=== PATIENT | female | born 1965 | race Caucasian/White ===

== ENCOUNTER 2021-03-06 11:45 | Inpatient (IN) | payer OTHER ==
[~2021-03-06] VITALS: Ht 170.2 cm; Wt 89.0 kg
[2021-03-06 14:04] LABS: BASOPHILS % (AUTO) 0 % (0-1); EOSINOPHILS % (AUTO) 0 % (1-7); LYMPHOCYTES % (AUTO) 14 % (22-44); MEAN CORPUSCULAR HEMOGLOBIN 30.1 pg (27.0-34.8); MEAN CORPUSCULAR HGB CONC 33.9 g/dL (32.4-35.8); MEAN PLATELET VOLUME 8.2 fL (7.4-10.4); MONOCYTES % (AUTO) 7 % (2-9); NEUTROPHILS % (AUTO) 79 % (42-75); PLATELET COUNT 412 x10^3/uL (130-400); RED BLOOD COUNT 5.83 x10^6/uL (3.82-5.3)
[2021-03-06 14:09] LABS: ALBUMIN 4.7 g/dL (3.4-5.0); ANION GAP 7 mmol/L (5-15); CALCIUM 10.4 mg/dL (8.5-10.1); CHLORIDE 92 mmol/L (98-107)
[2021-03-06 14:12] LABS: ALANINE AMINOTRANSFERASE 24 U/L (12-78); ALKALINE PHOSPHATASE 68 U/L (45-117); BILIRUBIN,TOTAL 0.6 mg/dL (0.2-1.0); CREATININE 1.28 mg/dL (0.55-1.02); TOTAL PROTEIN 9.1 g/dL (6.4-8.2)
--- NOTE | 2021-03-06 16:40 | NUR ---
Pt walked back to room from lobby.
[2021-03-06] MEDS ORDERED: MORPHINE SULFATE 4 MG/ML, 1ML IVPush PRN ×2 (17:00→20:30)
[2021-03-06] MEDS ORDERED: SODIUM CHLORIDE 0.9% 1,000 ML IV ONE ×2 (17:00→19:30)
[2021-03-06] MEDS ORDERED: ONDANSETRON 2MG/ML, 2ML IVPush ONE (17:00)
[2021-03-06] MEDS ORDERED: FAMOTIDINE 20 MG/2 ML IVPush ONE (17:00)
[2021-03-06] MEDS ORDERED: SODIUM CHLORIDE FLUSH 10ML SYR IVF ONE (17:00)
[2021-03-06] MEDS ORDERED: SODIUM CHLORIDE 0.9% 1,000ML IVBOLUS ONE (17:00)
[2021-03-06 17:02] LABS: MICROSCOPIC INDICATED
--- NOTE | 2021-03-06 17:05 | NUR ---
CT AWAITING IV
--- NOTE | 2021-03-06 17:18 | NUR ---
PT TO CT
[2021-03-06] MEDS ORDERED: MORPHINE SULFATE 4 MG/ML, 1ML ONE (17:20)
[2021-03-06] MEDS ORDERED: ONDANSETRON 2MG/ML, 2ML ONE (17:20)
[2021-03-06] MEDS ORDERED: FAMOTIDINE 20 MG/2 ML ONE (17:21)
[2021-03-06] MEDS ORDERED: OMNIPAQUE 350 MG/ML, 100ML BOTTLE ONE (17:38)
[2021-03-06] MEDS ORDERED: PANTOPRAZOLE 40 MG IV ONE (19:28)
[2021-03-06] MEDS ORDERED: SODIUM CHLORIDE FLUSH 10ML SYR IVF PRN (19:30)
[2021-03-06] MEDS: PANTOPRAZOLE 40 MG IV IVPush SCH (19:54)
[2021-03-06] MEDS ORDERED: SODIUM CHLORIDE 0.9% 1,000 ML IV SCH (20:30)
[2021-03-06] MEDS ORDERED: ONDANSETRON 2MG/ML, 2ML IVPush PRN (20:30)
--- NOTE | 2021-03-06 20:53 | NUR ---
ATTEMPT FOR REPORT, NO ANSWER
--- NOTE | 2021-03-06 21:23 | NUR ---
REPORT TO CHETAN FLORES
[2021-03-06 23:53] VITALS: BP 119/77
[2021-03-07 00:13] VITALS: BP 112/73
[2021-03-07 07:58] VITALS: BP 127/80
[2021-03-07] MEDS ORDERED: PROMETHAZINE 25 MG/ML, 1ML IVPush PRN (08:30)
[2021-03-07] MEDS ORDERED: HALOPERIDOL 5 MG/ML IV PRN (08:30)
[2021-03-07] MEDS ORDERED: FENTANYL PF 100 MCG/2ML IV PRN (08:30)
[2021-03-07] MEDS: PANTOPRAZOLE 40 MG IV IVPush SCH ×2 (08:39→20:37)
[2021-03-07] MEDS ORDERED: CHLORHEXIDINE 15 ML UDC ONE (08:40)
[2021-03-07 08:56] LABS: ANION GAP 6 mmol/L (5-15); CALCIUM 8.9 mg/dL (8.5-10.1); CHLORIDE 100 mmol/L (98-107)
[2021-03-07 08:57] LABS: CREATININE 0.81 mg/dL (0.55-1.02)
[2021-03-07] MEDS ORDERED: PROPOFOL 10 MG/ML, 20ML ONE (09:18)
[2021-03-07] MEDS ORDERED: ONDANSETRON 2MG/ML, 2ML ONE (09:18)
[2021-03-07] MEDS ORDERED: ROCURONIUM 10MG/ML,5ML ONE (09:18)
[2021-03-07] MEDS ORDERED: NEOSTIGMINE 1 MG/ML, 10ML ONE (09:18)
[2021-03-07] MEDS ORDERED: GLYCOPYRROLATE 0.2MG/1ML, 5ML ONE (09:18)
[2021-03-07] MEDS ORDERED: SUCCINYLCHOLINE 20 MG/ML, 10ML ONE (09:18)
[2021-03-07] MEDS ORDERED: CEFAZOLIN 1,000 MG ONE (09:18)
[2021-03-07] MEDS ORDERED: POTASSIUM CHLORIDE 40 MEQ in SODIUM CHLORIDE 0.9% 500 ML IV ONE (13:30)
[2021-03-07 16:02] VITALS: BP 127/80
[2021-03-07] MEDS: LORazepam 2 MG/ML, 1ML IVPush PRN (18:34)
[2021-03-07 18:58] VITALS: BP 132/80
[2021-03-08 00:32] VITALS: BP 128/85
[2021-03-08 06:01] LABS: BASOPHILS % (AUTO) 1 % (0-1); EOSINOPHILS % (AUTO) 1 % (1-7); LYMPHOCYTES % (AUTO) 27 % (22-44); MEAN CORPUSCULAR HEMOGLOBIN 30.6 pg (27.0-34.8); MEAN CORPUSCULAR HGB CONC 34.1 g/dL (32.4-35.8); MEAN PLATELET VOLUME 8.1 fL (7.4-10.4); MONOCYTES % (AUTO) 7 % (2-9); NEUTROPHILS % (AUTO) 65 % (42-75); PLATELET COUNT 266 x10^3/uL (130-400); RED BLOOD COUNT 4.78 x10^6/uL (3.82-5.3); RED CELL DISTRIBUTION WIDTH 13.8 % (9.6-15.2)
[2021-03-08 06:11] LABS: ANION GAP 5 mmol/L (5-15); CALCIUM 8.8 mg/dL (8.5-10.1); CHLORIDE 107 mmol/L (98-107)
[2021-03-08 06:12] LABS: CREATININE 0.71 mg/dL (0.55-1.02)
[2021-03-08] MEDS: PANTOPRAZOLE 40 MG IV IVPush SCH ×2 (08:00→20:09)
[2021-03-08 08:11] VITALS: BP 123/82
[2021-03-08] MEDS ORDERED: CHLORHEXIDINE 15 ML UDC ONE (09:43)
[2021-03-08] MEDS ORDERED: CHLORHEXIDINE 15 ML UDC PO ONE (10:00)
[2021-03-08] MEDS ORDERED: ROCURONIUM 10 MG/ML,10ML ONE (10:53)
[2021-03-08] MEDS ORDERED: SUCCINYLCHOLINE 20 MG/ML, 10ML ONE (10:53)
[2021-03-08] MEDS ORDERED: PROPOFOL 10 MG/ML, 20ML ONE (10:53)
[2021-03-08] MEDS ORDERED: LIDOCAINE 1%, 20ML ONE (10:53)
[2021-03-08] MEDS ORDERED: FENTANYL PF 100 MCG/2ML IV PRN (12:00)
[2021-03-08] MEDS ORDERED: hydrALAzine 20 MG/ML, 1ML IV PRN (12:00)
[2021-03-08] MEDS ORDERED: HALOPERIDOL 5 MG/ML IV PRN (12:00)
[2021-03-08] MEDS ORDERED: PROMETHAZINE 25 MG/ML, 1ML IVPush PRN (12:00)
[2021-03-08] MEDS ORDERED: LABETALOL 5MG/ML, 20ML IV PRN (12:00)
[2021-03-08] MEDS ORDERED: DIPHENHYDRAMINE 50 MG/ML, 1ML IVPush PRN (12:00)
[2021-03-08 14:25] VITALS: BP 123/74
[2021-03-08 18:43] VITALS: BP 148/86
[2021-03-08] MEDS: LORazepam 2 MG/ML, 1ML IVPush PRN (19:06)
[2021-03-08] MEDS: SODIUM CHLORIDE 0.9% 1,000 ML IV SCH (19:06)
[2021-03-09 01:09] VITALS: BP 130/84
[2021-03-09] MEDS: SODIUM CHLORIDE 0.9% 1,000 ML IV SCH (04:31)
[2021-03-09] MEDS ORDERED: PHENOL THROAT SPRAY BOTTLE MM PRN (05:00)
[2021-03-09] MEDS: AMPICILLIN 2 GM in SODIUM CHLORIDE 0.9% 100 ML IV SCH ×2 (10:15→16:43)
[2021-03-09] MEDS: PANTOPRAZOLE 40 MG IV IVPush SCH ×2 (10:15→23:31)
[2021-03-09 10:27] VITALS: BP 130/82
[2021-03-09] MEDS ORDERED: TPN PER PHARMACY MC PRN (11:00)
[2021-03-09] MEDS: METRONIDAZOLE PMX 500MG/100ML 100 ML IV SCH ×3 (11:37→23:31)
[2021-03-09] MEDS ORDERED: SODIUM CHLORIDE 0.9% 1,000 ML IV SCH (13:00)
[2021-03-09 13:54] VITALS: BP 143/96
[2021-03-09 14:56] LABS: ALANINE AMINOTRANSFERASE 24 U/L (12-78); ALBUMIN 3.9 g/dL (3.4-5.0); ANION GAP 11 mmol/L (5-15); CALCIUM 8.6 mg/dL (8.5-10.1); CHLORIDE 101 mmol/L (98-107); CREATININE 0.84 mg/dL (0.55-1.02)
[2021-03-09 14:59] LABS: ALKALINE PHOSPHATASE 74 U/L (45-117); BILIRUBIN,TOTAL 0.8 mg/dL (0.2-1.0); TOTAL PROTEIN 7.9 g/dL (6.4-8.2)
[2021-03-09] MEDS ORDERED: DEXTROSE 70% IV SCH (15:30)
[2021-03-09] MEDS ORDERED: FAT EMUL IV SCH (15:30)
[2021-03-09] MEDS ORDERED: [UNRECOGNIZED DRUG - OTHER] IV SCH (15:30)
[2021-03-09] MEDS ORDERED: SMOF TPN IV SCH (15:30)
[2021-03-09] MEDS ORDERED: AMINO ACID 10% IV SCH (15:30)
[2021-03-09] MEDS ORDERED: DEXTROSE 50%, 50ML SYRINGE IVPush PRN (17:00)
[2021-03-09] MEDS ORDERED: PVN PER PHARMACY MC SCH (17:00)
[2021-03-09] MEDS ORDERED: DEXTROSE 10% 500 ML IV PRN (17:00)
[2021-03-09] MEDS: FILTER, DISP 1.2 MICRON FOR TPN/PVN IV PRN (18:17)
[2021-03-09 19:42] VITALS: BP 162/95
[2021-03-09] MEDS: LORazepam 2 MG/ML, 1ML IVPush PRN (21:04)
[2021-03-10] MEDS: INSULIN REGULAR LOW DOSE Q6H X 48HRS SQ-INSULIN SCH ×4 (00:06→18:00)
[2021-03-10] MEDS: AMPICILLIN 2 GM in SODIUM CHLORIDE 0.9% 100 ML IV SCH ×4 (00:57→21:01)
[2021-03-10] MEDS: LORazepam 2 MG/ML, 1ML IVPush PRN ×2 (02:38→21:01)
[2021-03-10 02:42] VITALS: BP 122/73
[2021-03-10 06:49] LABS: ANION GAP 7 mmol/L (5-15); CALCIUM 8.8 mg/dL (8.5-10.1); CHLORIDE 103 mmol/L (98-107)
[2021-03-10 06:56] LABS: ALANINE AMINOTRANSFERASE 17 U/L (12-78); ALKALINE PHOSPHATASE 60 U/L (45-117); BILIRUBIN,TOTAL 0.5 mg/dL (0.2-1.0); CREATININE 0.55 mg/dL (0.55-1.02); PREALBUMIN 13.5 mg/dL (20.0-40.0); TOTAL PROTEIN 6.6 g/dL (6.4-8.2); TRIGLYCERIDES 74 mg/dL (50-200)
[2021-03-10 08:05] VITALS: BP 124/77
[2021-03-10] MEDS: METRONIDAZOLE PMX 500MG/100ML 100 ML IV SCH ×2 (08:08→16:15)
[2021-03-10] MEDS: PANTOPRAZOLE 40 MG IV IVPush SCH (10:22)
[2021-03-10 13:16] VITALS: BP 124/81
[2021-03-10] MEDS ORDERED: DEXTROSE 70% IV SCH ×2 (17:00)
[2021-03-10] MEDS ORDERED: FAT EMUL IV SCH ×2 (17:00)
[2021-03-10] MEDS ORDERED: AMINO ACID 10% IV SCH ×2 (17:00)
[2021-03-10] MEDS ORDERED: [UNRECOGNIZED DRUG - OTHER] IV SCH ×2 (17:00)
[2021-03-10] MEDS ORDERED: SMOF TPN IV SCH ×2 (17:00)
[2021-03-10 20:03] VITALS: BP 130/84
[2021-03-10] MEDS: FILTER, DISP 1.2 MICRON FOR TPN/PVN IV PRN (21:01)
[2021-03-11] MEDS: METRONIDAZOLE PMX 500MG/100ML 100 ML IV SCH ×3 (00:05→16:34)
[2021-03-11] MEDS: PANTOPRAZOLE 40 MG IV IVPush SCH ×2 (00:06→12:41)
[2021-03-11 01:02] VITALS: BP 135/90
[2021-03-11] MEDS: AMPICILLIN 2 GM in SODIUM CHLORIDE 0.9% 100 ML IV SCH ×3 (03:06→18:08)
[2021-03-11] MEDS: INSULIN REGULAR LOW DOSE Q6H X 48HRS SQ-INSULIN SCH ×4 (06:00→18:00)
[2021-03-11 06:20] LABS: CHLORIDE 106 mmol/L (98-107)
[2021-03-11 06:30] LABS: ANION GAP 5 mmol/L (5-15); CALCIUM 8.6 mg/dL (8.5-10.1); CREATININE 0.54 mg/dL (0.55-1.02)
[2021-03-11 07:01] VITALS: BP 126/89
[2021-03-11 13:00] VITALS: BP 133/84
[2021-03-11] MEDS ORDERED: FAT EMUL IV SCH (17:00)
[2021-03-11] MEDS ORDERED: AMINO ACID 10% IV SCH (17:00)
[2021-03-11] MEDS ORDERED: [UNRECOGNIZED DRUG - OTHER] IV SCH (17:00)
[2021-03-11] MEDS ORDERED: SMOF TPN IV SCH (17:00)
[2021-03-11] MEDS ORDERED: DEXTROSE 70% IV SCH (17:00)
[2021-03-11 19:35] VITALS: BP 113/73
[2021-03-11] MEDS: LORazepam 2 MG/ML, 1ML IVPush PRN (20:24)
[2021-03-11] MEDS: metroNIDAZOLE 500 MG TABLET PO SCH (20:25)
[2021-03-11] MEDS: AMOXICILLIN 500 MG CAPSULE PO SCH (20:25)
[2021-03-12 00:13] VITALS: BP 120/77
[2021-03-12] MEDS ORDERED: INSULIN REGULAR LOW DOSE QDAY SQ-INSULIN SCH (05:00)
[2021-03-12] MEDS: OMEPRAZOLE 20 MG CAPSULE.DR PO SCH ×2 (05:29→15:29)
[2021-03-12 07:28] VITALS: BP 119/78
[2021-03-12] MEDS: metroNIDAZOLE 500 MG TABLET PO SCH ×2 (08:28→15:29)
[2021-03-12] MEDS: AMOXICILLIN 500 MG CAPSULE PO SCH (08:29)
[2021-03-12] MEDS ORDERED: AMOX-291 PO ×2 (08:47→08:52)
[2021-03-12] MEDS ORDERED: OMEP-110 PO ×2 (08:47→08:52)
[2021-03-12] MEDS ORDERED: METR500T PO ×2 (08:48→08:52)
[2021-03-12 09:06] LABS: BASOPHILS % (AUTO) 1 % (0-1); EOSINOPHILS % (AUTO) 3 % (1-7); LYMPHOCYTES % (AUTO) 34 % (22-44); MEAN CORPUSCULAR HGB CONC 33.8 g/dL (32.4-35.8); MEAN PLATELET VOLUME 7.9 fL (7.4-10.4); MONOCYTES % (AUTO) 6 % (2-9); NEUTROPHILS % (AUTO) 56 % (42-75); PLATELET COUNT 277 x10^3/uL (130-400); RED BLOOD COUNT 4.72 x10^6/uL (3.82-5.3); RED CELL DISTRIBUTION WIDTH 13.3 % (9.6-15.2)
[2021-03-12 09:19] LABS: ANION GAP 5 mmol/L (5-15); CALCIUM 9.1 mg/dL (8.5-10.1); CHLORIDE 105 mmol/L (98-107)
[2021-03-12 09:20] LABS: CREATININE 0.64 mg/dL (0.55-1.02)
[2021-03-12 13:00] VITALS: BP 118/76
== END 2021-03-12 17:09 | disposition home or self-care (01) | DRG 381 ==
LOC: ED 19:06 → EDIP 19:16 → 3N 22:04
PROVIDERS: ADMIT Internal Medicine; ATTEND Family Medicine
PROC: 0D9670Z Drainage of Stomach with Drainage Device, Via Natural or Artificial Opening (ICD-10-PCS; 2021-03-06)
PROC: 0DB68ZX Excision of Stomach, Via Natural or Artificial Opening Endoscopic, Diagnostic (ICD-10-PCS; 2021-03-07)
PROC: 0DJ08ZZ Inspection of Upper Intestinal Tract, Via Natural or Artificial Opening Endoscopic (ICD-10-PCS; principal; 2021-03-08 10:30)
DX: K31.1 Adult hypertrophic pyloric stenosis (principal); K22.10 Ulcer of esophagus without bleeding; B96.81 Helicobacter pylori [H. pylori] as the cause of diseases classified elsewhere; E86.0 Dehydration; E87.6 Hypokalemia; T39.395A Adverse effect of other nonsteroidal anti-inflammatory drugs [NSAID], initial encounter; Z20.822 Contact with and (suspected) exposure to COVID-19; G89.29 Other chronic pain; M54.9 Dorsalgia, unspecified; K25.9 Gastric ulcer, unspecified as acute or chronic, without hemorrhage or perforation; K26.9 Duodenal ulcer, unspecified as acute or chronic, without hemorrhage or perforation; Z98.51 Tubal ligation status; Y92.89 Other specified places as the place of occurrence of the external cause; Z79.1 Long term (current) use of non-steroidal anti-inflammatories (NSAID); Z80.0 Family history of malignant neoplasm of digestive organs; Z87.19 Personal history of other diseases of the digestive system
CPT/HCPCS: 36415; 96361; 96374; 96375; 99285; J3475; J3490; 71045; 74177; 76700; 80048; 80053; 81001; 82962; 83690; 83735; 84100; 84134; 84478; 85025; 87086; 87635; 88305; G0378; J0290; J0610; J0690; J1644; J1815; J2405; J2704; J2710; J3480; Q9967; C9113; J0330; J1720; J2060; J2270; J3420; J7030; J7040